=== PATIENT | male | born 1995 | race African-American/Black ===

== ENCOUNTER 2017-02-20 13:49 | Outpatient (CLI) | payer OTHER ==
[2017-02-20 14:42] LABS: #Basophils 0.1 thou/uL (0.0-0.2); #Eosinphils 0.7 thou/uL (0.0-0.7); #Monocytes 0.4 thou/uL (0.11-0.59); %Basophils 0.8 % (0.0-1.0); %Lymphocytes 27.9 % (21.0-51.0); %Monocytes 5.4 % (0.0-10.0); Hematocrit 47.7 % (42.0-52.0); Mean Platelet Volume 7.9 fL (7.4-10.4); Red Blood Cell (RBC) Count 5.05 mill/uL (4.70-6.10); White Blood Cell (WBC) Count 7.1 thou/uL (4.8-10.8)
== END 2017-02-20 13:50 | disposition home or self-care (01) ==
LOC: LABBT 13:49
PROVIDERS: ATTEND Orthopaedic Surgery Hand Surgery
DX: Z01.812 Encounter for preprocedural laboratory examination (principal); S53.22XA Traumatic rupture of left radial collateral ligament, initial encounter
CPT/HCPCS: 85025

== ENCOUNTER 2017-02-21 06:33 | Day surgery (SDC) | payer OTHER ==
[2017-02-20 14:16] VITALS: BMI 35.9
[2017-02-21] MEDS ORDERED: Bupivacaine PF 0.5% 30 ML VIAL ONE (06:39)
[2017-02-21] MEDS ORDERED: Bacitracin Zinc Ointment 30 gm TUBE ONE (06:39)
[2017-02-21] MEDS ORDERED: Betamet Acet/Betamet Na Ph 30 MG/5 ML VIAL ONE (06:39)
[2017-02-21] MEDS ORDERED: CEFAZOLIN/Water 2 GM/20 ML SYRINGE ONE (07:16)
[2017-02-21] MEDS ORDERED: Midazolam HCl 2 mg/2 ml Vial ONE (07:17)
[2017-02-21] MEDS ORDERED: Fentanyl 250 MCG/5 ML VIAL ONE (07:17)
[2017-02-21] MEDS ORDERED: Dexamethasone 4 mg/ml Vial ONE (07:33)
[2017-02-21] MEDS ORDERED: Propofol 200 MG/20 ML VIAL ONE (07:57)
[2017-02-21] MEDS ORDERED: Lidocaine 1% PF 5 ML VIAL ONE (07:57)
[2017-02-21] MEDS ORDERED: Ondansetron HCl/PF 4 MG/2 ML Vial ONE (07:57)
[2017-02-21] MEDS ORDERED: Ketorolac Tromethamine 30 MG/ML VIAL ONE (09:58)
--- NOTE | 2017-02-21 11:51 | OP ---
DATE OF PROCEDURE: 02/21/2017 ANESTHESIA: General LMA technique augmented by preoperative axillary block. 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 FINDINGS: 1. Radial collateral ligament intact with thickening in the area of a fracture at the base of the r adial middle phalanx and no laxity compared to other digits, radial, ulnar, collateral ligament. 2. Volnarization of the lateral bands, especially radial side. 3. Joint contracture -40 degrees even passive extension today. PROCEDURE PERFORMED: 1. Mobilization of the lateral bands. 2. Open arthrotomy of the proximal phalangeal joint with volar capsular release (volar plate). 3. Extensor tenotomy with shortening. 4. Extensor tendon reconstruction over the proximal phalangeal joint. 4. Pinning, open reduced in -5 degrees extension the proximal interphalangeal joint, left small fin estuardo. TOURNIQUET TIME: 58 minutes. ESTIMATED BLOOD LOSS: 10 mL. INJECTABLE: None because of the block. 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 He noticed he had a possible multiple dislocations/subluxations, but noticed primarily boutonnier e deformity with time. It appeared on radiographs, he had a fracture at the base of the radial midd le phalanx so MRI was done, showed radial collateral ligament was intact, but there was laxity of th e extensor mechanism over the joint. Clinically, he had a chronic boutonniere with a joint contract ure and I could not achieve subluxation of the joint. PROCEDURE: After successful general endotracheal anesthesia, the patient had limb prepped and drape d. The timeout was done appropriately. Block had been given preoperative axillary type. A zigzag incision was made through the phalangeal joint and went volar to the midline from the sagit tank plane on the radial side to evaluate the radial collateral ligament well. Medially, we saw the lateral bands had become volarized so we had to release them in a 2 cm area centered around the join t. Then, explore the radial collateral ligament, saw it was very thickened on the distal one-third near its insertion on the radial corner of the middle phalanx, but did not have laxity even with the lateral bands released and with the joint arthrotomy. We then performed an arthrotomy through the central slip centered on the joint. We then with the joint at 00 degrees of flexion was able to vis ualize the volar plate and began to release it from inside out using a [place]coe. We stayed in the midl ine so as not to disturb the flexor tendon or the neurovascular bundle. Then we can now achieve without undue screen bag 0 degrees extension. At this point, we then pinned the joint at -5 degrees, extension, we used a 0.45 K-wire from the uln ar aspect distally, radial aspect proximally. Then we removed 1 mm of the extensor mechanism proximal to the midline to the mid joint cut and half a millimeter on the opposite side, mobilizing 1.5 mm. We then closed the interval anatomically wit h interrupted [id number] buried knot 4-0 Prolene. We released the tourniquet. Cut the wire flush with the joint. I then obtained hemostasis. I then closed the incision with interrupted 5-0 nylon. Bulky dressing was applied along with a splint sophie t included the ring finger and the small finger leaving the other digits free. He left the operatin g room without evidence of anesthetic or operative complication.
[2017-02-21] MEDS ORDERED: Ropivacaine 0.5% HCl/PF (150 MG/30 ML VIAL) ONE (15:18)
--- NOTE | 2017-02-21 20:34 | RAD ---
TWO VIEWS FIFTH DIGIT LEFT HAND: 02/21/17 HISTORY: Intraoperative views fifth digit left hand is obtained. There is a transosseous arthrodesis pin across the proximal interphalangeal joint fifth digit left h and. IMPRESSION: Transosseous pin across the PIP joint fifth digit left hand. POS: MARIANO
== END 2017-02-21 11:30 | disposition home or self-care (01) ==
LOC: SDC 06:33
PROVIDERS: ATTEND Orthopaedic Surgery Hand Surgery
PROC: 0XQW0ZZ Repair Left Little Finger, Open Approach (ICD-10-PCS; principal; 2017-02-21)
DX: S62.617A Displaced fracture of proximal phalanx of left little finger, initial encounter for closed fracture (principal); M20.022 Boutonniere deformity of left finger(s); S69.92XA Unspecified injury of left wrist, hand and finger(s), initial encounter
CPT/HCPCS: 76001; 96374; J0702; J1100; J1885; J2001; J2250; J2405; J2704; J2795; J3010; S0020